=== PATIENT | female | born 1945 | race Caucasian/White ===

== ENCOUNTER 2017-07-27 17:44 | Emergency (ER) | payer MEDICARE, OTHER ==
[2017-07-27] MEDS ORDERED: Ondansetron HCl/PF 4 MG/2 ML Vial ONE (18:01)
[2017-07-27] MEDS ORDERED: Fentanyl 100 MCG/2 ML VIAL ONE ×2 (18:01→19:17)
[2017-07-27 18:31] LABS: #Eosinphils 0.1 thou/uL (0.0-0.7); #Monocytes 0.4 thou/uL (0.11-0.59); #Neutrophils 2.8 thou/uL (1.40-6.50); %Basophils 0.7 % (0.0-1.0); %Lymphocytes 36.8 % (21.0-51.0); %Monocytes 7.6 % (0.0-10.0); Hematocrit 40.3 % (36.0-47.0); Mean Platelet Volume 7.3 fL (7.4-10.4); Red Blood Cell (RBC) Count 4.18 mill/uL (4.20-5.40); White Blood Cell (WBC) Count 5.3 thou/uL (4.8-10.8)
[2017-07-27 18:36] LABS: Prothrombin Time 13.3 SEC (12.0-14.7)
[2017-07-27 18:57] LABS: Anion Gap 13 mmol/L (10-20); BUN (Urea Nitrogen) 24 mg/dL (9.8-20.1); Calc. Creatinine Clearance 0 mL/min (70-130); Calcium 9.3 mg/dL (7.8-10.44); Carbon Dioxide 23 mmol/L (23-31); Chloride 107 mmol/L (98-107); Estimated GFR-MDRD 51
--- NOTE | 2017-07-27 19:01 | RAD ---
LEFT WRIST THREE VIEWS: 07/27/17 FINDINGS/IMPRESSION: There is a dorsally displaced comminuted fracture involving the distal radius. A fracture of the uln ar styloid is also seen. POS: [facility]
[2017-07-27] MEDS ORDERED: Diprivan 20 ML ONE ×2 (19:17→21:05)
--- NOTE | 2017-07-27 20:14 | RAD ---
LEFT WRIST THREE VIEWS: 07/27/17 HISTORY: Distal radial and ulnar fractures, reduction. FINDINGS/IMPRESSION: There has been incomplete interval reduction of the distal radial fracture since earlier exam of 6:0 4 p.m., same date. Ulnar styloid fracture is again seen. A cast has been placed. POS: [facility]
== END 2017-07-27 21:28 | disposition home or self-care (01) ==
LOC: ERS 17:44
DX: S52.532A Colles' fracture of left radius, initial encounter for closed fracture (principal); E78.5 Hyperlipidemia, unspecified; W07.XXXA Fall from chair, initial encounter
CPT/HCPCS: 25605; 80048; 85025; 85610; 85730; 96361; 96374; 96375; 96376; 99152; J2405; J2704; J3010

== ENCOUNTER 2017-07-31 05:45 | Day surgery (SDC) | payer MEDICARE, OTHER ==
--- NOTE | 2017-07-30 08:48 | HP ---
HISTORY OF PRESENT ILLNESS: The patient is a 72-year-old right-handed female who fell on her outstr etched hand on 07/27/2017 sustaining a comminuted displaced intra-articular fracture of the left dis yulisa radius. She underwent attempted closed reduction in the emergency room and was referred to [facility]. Reduction was incomplete. She is admitted at this time for definitive treatment of the frac ture. PAST MEDICAL HISTORY: The patient is otherwise in good health. She is on thyroid replacement oral estrogen replacement and has history of reflux. CURRENT MEDICATIONS: She takes Prilosec and also 81 mg aspirin. She has glaucoma and uses drops. ALLERGIES: She has no known allergies. FAMILY HISTORY/SOCIAL HISTORY/REVIEW OF SYSTEMS: Otherwise unremarkable. The patient is normally q uite active and healthy. PHYSICAL EXAMINATION: GENERAL: Reveals a healthy female. HEENT: Unremarkable. NECK: Supple. CHEST: Clear. HEART: Regular rate and rhythm. ABDOMEN: Soft, nontender. PELVIC/RECTAL/BREAST: Exams are deferred. EXTREMITIES: Pertinent findings are in the left wrist. There is a positive swelling. There is ten derness over the distal radius. The skin is intact. There is moderate ecchymosis. There is restri cted range of motion secondary to pain. Neurovascular exam is intact. X-rays revealed a displaced comminuted intraarticular fracture of the distal radius with any motion of the ulnar styloid. Post-reduction films reveal improved, but incomplete reduction. IMPRESSION: Displaced intra-articular fracture left distal radius and avulsion fracture of ulnar st yloid. PLAN: Open reduction internal fixation with volar locking plate. The nature of the surgery, length of recovery, and potential complications such as infection, loss of motion, incomplete relief, neur ovascular injury, delayed or nonunion, and need for additional treatment or repeat surgery have been discussed in detail with the patient and her .
[2017-07-30 12:34] VITALS: BMI 24.7
[2017-07-31] MEDS ORDERED: Lidocaine 1% (PF) 30 ML VIAL ONE (06:33)
[2017-07-31] MEDS ORDERED: Fentanyl 100 MCG/2 ML VIAL ONE (06:33)
[2017-07-31] MEDS ORDERED: Midazolam HCl 2 mg/2 ml Vial ONE (06:33)
[2017-07-31] MEDS ORDERED: Promethazine HCl 25 MG/ML VIAL IM PRN (07:31)
[2017-07-31] MEDS ORDERED: Fentanyl 100 MCG/2 ML VIAL IV PRN (07:31)
[2017-07-31] MEDS ORDERED: Ondansetron HCl/PF 4 MG/2 ML Vial IVP PRN (07:31)
[2017-07-31] MEDS ORDERED: Ketorolac Tromethamine 30 MG/ML VIAL IVP PRN (07:31)
[2017-07-31] MEDS ORDERED: HYDROcodone/Acetaminophen 5/325 mg Tablet PO PRN ×2 (07:31)
[2017-07-31] MEDS ORDERED: traMADol HCl 50 MG TAB PO PRN ×2 (07:31)
[2017-07-31] MEDS ORDERED: Ropivacaine 0.2% 550 ML 550 ML NERVE BLCK SCH (07:31)
[2017-07-31] MEDS ORDERED: Zolpidem Tartrate 5 MG TAB PO PRN (07:31)
[2017-07-31] MEDS ORDERED: Ondansetron HCl/PF 4 MG/2 ML Vial ONE ×2 (07:37→09:38)
[2017-07-31] MEDS ORDERED: Ketorolac Tromethamine 30 MG/ML VIAL ONE (07:37)
[2017-07-31] MEDS ORDERED: Propofol 200 MG/20 ML VIAL ONE (07:37)
[2017-07-31] MEDS ORDERED: Glycopyrrolate 0.2 MG/ML 5 ML SYRINGE ONE (07:37)
[2017-07-31] MEDS ORDERED: ePHEDrine/0.9% NaCl/PF SYRINGE 50 mg/10 ml ONE (07:37)
[2017-07-31] MEDS ORDERED: Dexamethasone 20 MG/5 ML VIAL ONE (07:37)
[2017-07-31] MEDS ORDERED: Lidocaine 2% PF 10 ML AMP (For Epidural Use) ONE (07:37)
[2017-07-31] MEDS ORDERED: PHENYLEPHRINE-NS 100 MCG/ML 10 ML SYRINGE ONE (07:37)
--- NOTE | 2017-07-31 10:05 | OP ---
DATE OF PROCEDURE: 07/31/2017 SURGEON: Galen Ramires M.D. PRACTICAL NURSE: Navneet Lau PA-C ANESTHESIA: General plus supraclavicular block. PREOPERATIVE DIAGNOSIS: Comminuted intraarticular fracture, left distal radius. POSTOPERATIVE DIAGNOSIS: Comminuted intraarticular fracture, left distal radius. PROCEDURE: Open reduction internal fixation left distal radius with volar Synthes locking distal ra dial plate. OPERATIVE FINDINGS: After satisfactory anesthesia was induced in supine position, the patient was p repped and draped in the routine manner. The left arm was elevated, exsanguinated with an Esmarch b andage, and the tourniquet inflated to 250 mmHg. A longitudinal incision was made along the volar ra dial aspect of the wrist in line with the flexor carpi radialis tendon and this carried slightly in zigzag fashion over the base of the thenar eminence. This was carried down to subcutaneous tissues. Bleeding points controlled with Bovie cautery. The sheath of the flexor carpi radialis was split in line with the skin incision and the tendon retracted radially and the floor of the sheath then sp lit in line with the skin incision. The pronator quadratus was detached subperiosteally reflected a nd the fracture exposed. It was markedly comminuted and displaced and unstable. Reduction was quit e difficult and eventually required anesthesia change from an LMA to general endotracheal anesthesia and to administer muscle relaxants to allow reduction of the fracture. Acceptable reduction could be obtained by C-arm. A Synthes volar locking plate was then affixed to the volar aspect of the dis yulisa radius and provisionally fixed with K-wires and position and reduction checked with an image int ensifier. A cortical screw was then placed in the oblong hole of the plate and position of the plat e adjusted and the oblong screw tightened. Four locking screws were then placed in the distal row o f the plate and the distal fragment after appropriate drilling and depth gauge measurements and 2 bi cortical screws were placed in the proximal plate after appropriate drilling depth gauge measurement s. This appeared to give good stable reduction and there was good fracture reduction and satisfacto ry plate and screw placement by image intensifier and hard copies were made. The wound was copiousl y irrigated. Subcutaneous tissues were closed with interrupted 2-0 Vicryl, and skin closed with int errupted 3-0 nylon. A sterile dressing was applied and the tourniquet deflated after 77 minutes. T he hand promptly pinked up and the patient immobilized in a volar plaster splint. She was awakened, taken to recovery room in stable condition. There were no apparent intraoperative complications. ESTIMATED BLOOD LOSS: Negligible. The patient will be discharged home in satisfactory condition and instructed on ice, elevation, and given written cast care instructions and prescription for [place] 10 for pain, 60 tablets. She will b e rechecked in my office in 10-14 days or sooner if there are any problems prior to that time.
--- NOTE | 2017-07-31 10:10 | RAD ---
THREE VIEWS RIGHT WRIST: Comparison: 07-27-17 History: ORIF of distal radius fracture. FINDINGS/IMPRESSION: Three limited intraoperative views of the right wrist were submitted for interpretation. The patient is status post ORIF of the intraarticular comminuted distal radius fracture with a plate and screws . Better alignment is seen. An associated ulnar styloid fracture is present. POS: [facility]
[2017-07-31] MEDS ORDERED: diphenhydrAMINE HCl 50 MG/ML 1 ML VIAL ONE (10:38)
== END 2017-07-31 11:55 | disposition home or self-care (01) ==
LOC: SDC 05:45
PROVIDERS: ATTEND Orthopaedic Surgery
PROC: 0PSJ04Z Reposition Left Radius with Internal Fixation Device, Open Approach (ICD-10-PCS; principal; 2017-07-31)
DX: S52.572A Other intraarticular fracture of lower end of left radius, initial encounter for closed fracture (principal); K21.9 Gastro-esophageal reflux disease without esophagitis; E03.9 Hypothyroidism, unspecified; E78.00 Pure hypercholesterolemia, unspecified; H40.20X0 Unspecified primary angle-closure glaucoma, stage unspecified; W19.XXXA Unspecified fall, initial encounter; Z79.82 Long term (current) use of aspirin; Z79.810 Long term (current) use of selective estrogen receptor modulators (SERMs); Z79.899 Other long term (current) drug therapy; Z90.710 Acquired absence of both cervix and uterus; Z98.890 Other specified postprocedural states; Z83.3 Family history of diabetes mellitus
CPT/HCPCS: 25608; 73100; 76001; 93005; 96374; A4306; C1713 ×2; 93010; J1100; J1200; J1885; J2001; J2250; J2405; J2704; J2795; J3010